=== PATIENT | female | born 1980 | race Caucasian/White ===

== ENCOUNTER 2019-07-10 12:42 | Emergency (ER) | payer SELFPAY ==
--- NOTE | 2019-07-10 13:33 | XRAY Report ---
Reason: pain/injury Procedure Date: 07/10/2019 Accession Number: [id number] / [id number] Procedure: XR - Knee 3 View RT CPT Code: Final Report FULL RESULT: EXAM: RIGHT KNEE RADIOGRAPHY EXAM DATE: 07/10/2019 01:18 PM. CLINICAL HISTORY: Pain/injury on trampoline yesterday. COMPARISON: None. TECHNIQUE: 3 views. FINDINGS: Bones: Normal. No fractures or bone lesions. Joints: Suprapatellar knee joint effusion. Alignment normal. No gross joint space narrowing. Articular surfaces unremarkable. Soft Tissues: Mild nonspecific soft tissue prominence in region of medial collateral ligament. No other soft tissue swelling. IMPRESSION: 1. Knee joint effusion and nonspecific mild soft tissue prominence in region of medial collateral ligament. 2. No fracture or dislocation. Examination otherwise as above. RADIA
--- NOTE | 2019-07-10 14:21 | ED Physician Documentation ---
PD HPI LOWER EXT INJURY - Stated complaint Stated Complaint: KNEE INJURY - Chief complaint Chief Complaint: Ext Problem - History obtained from History obtained from: Patient - History of Present Illness PD HPI LOW EXT INJURY LOCATION: Right, Knee Type of injury: Fall Where injury occurred: Other Timing - onset: Yesterday Timing - details: Abrupt onset Pain level now: 6 Improved by: Immobilization Worsened by: Moving, Other (Ambulating) Associated symptoms: Swelling. No: Weakness, Numbness, Tingling, Discolored Similar symptoms before: Has not had sx before Recently seen: Not recently seen - Additional information Additional information: Is a 39-year-old woman who was jumping on a trampoline yesterday she did a flip and she came around she landed on her butt and her right knee just felt like it got jerked the whole lower leg down. It was not twisted up underneath of her but it did pop. This happened yesterday around 3:30 in the afternoon and she had walked home about a block. Today when she woke up it had decreased range of motion and is just painful if she gets up and walks around on it about a 6 out of 10 kind of just this aching sensation when she is sitting. 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 She did notice swelling about the knee and a little bit about her ankle yesterday evening. She denies prior injury to that knee and no numbness or tingling down into her toes. Review of Systems Skin: denies: Lesions, Abrasion (s) Musculoskeletal: reports: Extremity pain, Joint pain, Extremity swelling, Joint swelling Neurologic: denies: Focal weakness, Numbness PD PAST MEDICAL HISTORY - Past Surgical History Past Surgical History: Yes - Present Medications Home Medications: Ambulatory Orders Medication Instructions Recorded Confirmed Clindamycin HCl 300 mg PO Q6H #28 capsule 02/23/13 No Known Home Medications 02/23/13 02/23/13 - Allergies Allergies/Adverse Reactions: Allergies Allergy/AdvReac Type Severity Reaction Status Date / Time No Known Drug Allergies Allergy Verified 07/10/19 12:47 - Social History Does the pt smoke?: Yes Smoking Status: Current every day smoker Does the pt drink ETOH?: Yes Does the pt have substance abuse?: No - Immunizations Immunizations are current?: Yes - POLST Patient has POLST: No PD ED PE NORMAL - Vitals Vital signs reviewed: Yes - General General: Alert and oriented X 3, No acute distress, Well developed/nourished, Other (Very pleasant 39-year-old woman who is not in acute distress. She does ambulate with a limp on the right leg.) - HEENT HEENT: Atraumatic, PERRL, Moist mucous membranes - Derm Derm: Normal color, Warm and dry, No rash - Extremities Extremities: Other (There is swelling with effusion of the right knee. No bruising. Limited range of motion to 90 degrees flexion about 175 degrees of extension. Knee is stable to varus and valgus stresses and there is a drawer sign. Palpable popliteal and dorsalis pedis pulses. She is able to wiggle her toes sensation is intact light touch in the ankle is atraumatic.) - Neuro Neuro: Alert and oriented X 3, licensed marriage and family therapist 2-12 intact, No motor deficit, No sensory deficit, Normal speech - Psych Psych: Normal mood, Normal affect Results - Vitals Vitals: Vital Signs - 24 hr 07/10/19 07/10/19 12:47 15:00 Temperature 36.8 C 36.8 C Heart Rate 80 71 Respiratory 16 16 Rate Blood Pressure 126/69 106/60 O2 Saturation 98 98 Oxygen O2 Source Room air - Rads (name of study) r knee Radiology: See rad report (neg) PD MEDICAL DECISION MAKING - ED course Complexity details: reviewed results, d/w patient ED course: Discussed the x-rays show some swelling but no fracture. Patient was offered crutches to be nonweightbearing but she thought she probably just limp around on it. We talked about not doing any twisting squatting or stooping on it. Take ibuprofen and ice it and continue with gentle range of motion to keep it from stiffening up. If is not improving follow with the primary care provider for further evaluation and management. Departure - Departure Disposition: 01 Home, Self Care Clinical Impression: Derangement, knee internal Qualifiers: Laterality: right Qualified Code(s): M23.91 - Unspecified internal derangement of right knee Condition: Good Instructions: ED Effusion Knee, ED Sprain Knee Follow-Up: [facility] [Provider Group] Comments: Take ibuprofen [id number] 3 to 4 tablets every 8 hours with food as needed for pain. Ice the knee and continue doing gentle range of motion exercises, but avoid twisting on it, squatting or stooping. Follow-up with a primary care provider if not showing improvement over the next 10 to 14 days for further management.
[2019-07-10 15:02] VITALS: BP 106/60
== END 2019-07-10 15:05 | disposition home or self-care (01) ==
LOC: ED 12:42
DX: M23.91 Unspecified internal derangement of right knee (principal); M25.461 Effusion, right knee; X50.1XXA Overexertion from prolonged static or awkward postures, initial encounter; Y93.44 Activity, trampolining; F17.200 Nicotine dependence, unspecified, uncomplicated
CPT/HCPCS: 99283; 99284

== ENCOUNTER 2024-01-03 08:00 | Outpatient (CLI) | payer BC | END 2024-01-03 23:59 | disposition home or self-care (01) | LOC: LAB.N 08:00 | PROVIDERS: ATTEND Physician Assistant Medical | DX: R30.0 Dysuria (principal) | CPT/HCPCS: 87086 ==